=== PATIENT | female | born 1955 | race Hispanic/Latino ===

== ENCOUNTER 2020-04-14 21:56 | Emergency (ER) | payer OTHER ==
[2020-04-14 22:16] LABS: Absolute Lymphocytes (CBC) 7.7 K/uL (0.7-4.9); Basophils % 0.5 % (0-1.3); Hematocrit 42.5 % (36.0-45.0); Lymphocytes % 39.3 % (15.3-44.8); MPV 12.3 fL (7.6-11.3); RBC Red Blood Cell Count 4.83 M/uL (3.86-4.86)
[2020-04-14 22:20] LABS: Protime INR 1.1
[2020-04-14 22:29] LABS: Arterial Blood Carboxyhemoglob 0.3 % (0-1.5); Blood Gas Oxyhemoglobin 98.1 % (94-97); Blood O2 Saturation 99.4 % (92-98.5)
[2020-04-14 22:33] LABS: Albumin 4.1 g/dL (3.4-5.0); Bilirubin Direct 0.2 mg/dL (0-0.2); Bilirubin Total 0.7 mg/dL (0.2-1.0); CKMB Creatine Kinase MB 1.1 ng/mL (0.3-3.6); Magnesium 1.5 mg/dL (1.8-2.4); Potassium 3.6 mmol/L (3.5-5.1); Protein, Total 8.8 g/dL (6.4-8.2); Troponin (Emerg Dept Use Only) 0.03 ng/mL (0.0-0.045)
[2020-04-14 22:48] LABS: Urine Blood NEGATIVE (NEG); Urine Glucose NEGATIVE (NEG); Urine Protein 2+ (NEG); Urine Specific Gravity >1.030 (1.005-1.030)
[2020-04-14] MEDS ORDERED: NA CHLORIDE 0.9% 100 ML IV ONE (23:56)
[2020-04-14] MEDS ORDERED: LEVETIRACETAM 500 MG/5 ML VIAL IV ONE (23:56)
[2020-04-15] MEDS ORDERED: NA CHLORIDE 0.9% 1,000 ML ONE (00:05)
--- NOTE | 2020-04-15 01:46 | ER ---
Nurse's Notes [facility] Name: Elizabeth Hernandez Age: 64 yrs Sex: Female : 1955 Arrival Date: 04/14/2020 Time: 21:58 Bed 2 Private MD: Diagnosis: Epilepsy and recurrent seizures Presentation: 04/14 21:50 Initial Sepsis Screen: Does the patient meet any 2 criteria? HR > 90 bpm. Does the ea patient have a suspected source of infection? No. Patient's initial sepsis screen is negative. 21:50 Chief complaint: EMS states: we were called for a patient who is unresponsive, while rr5 getting to shower she had a seizure, no history of seizure. another seizure witness by EMS lasted for 1 minute. previous stroke noted few weeks ago. Coronavirus screen: unable to obtain information. Ebola Screen: Patient negative for fever greater than or equal to 101.5 degrees Fahrenheit, and additional compatible Ebola Virus Disease symptoms Patient denies exposure to infectious person. Patient denies travel to an Ebola-affected area in the 21 days before illness onset. 21:50 Method Of Arrival: EMS: [facility] rr5 21:50 Risk Assessment: Do you want to hurt yourself or someone else? Unable to obtain. Onset rr5 of symptoms was April 14, 2020. Care prior to arrival: Medication(s) given: versed 10 mg/IV. 21:50 Acuity: IVANIA 1 rr5 Historical: - Allergies: 22:43 No Known Allergies; rr5 - Home Meds: 22:43 Metformin Oral [Active]; lisinopril 20 mg Oral tab 1 tab once daily [Active]; rr5 amlodipine 5 mg tab 1 tab once daily [Active]; glimepiride 1 mg Oral tab 1 tab once daily [Active]; chlorthalidone 25 mg Oral tab 1 tab once daily [Active]; Januvia 100 mg oral tab 1 tab once daily [Active]; atorvastatin 80 mg oral tab 1 tab once daily [Active]; - PMHx: 22:43 Hypertension; Hyperlipidemia; Diabetes - NIDDM; rr5 - Immunization history:: Adult Immunizations unknown. - Social history:: Smoking status: unknown. Screenin:09 Abuse screen: Denies threats or abuse. Nutritional screening: No deficits noted. ea Tuberculosis screening: No symptoms or risk factors identified. Fall Risk IV access (20 points). Assessment: 21:50 General: Appears in no apparent distress. Behavior is unresponsive. rr5 21:50 Pain: Unable to use pain scale. Patient is unresponsive. Neuro: Level of Consciousness rr5 is unresponsive, Oriented to none episodes of seizure and previous stroke stated EMS. Cardiovascular: Capillary refill < 3 seconds Patient's skin is warm and dry. Respiratory: Airway is patent Respiratory effort is even, Respiratory pattern is regular, in brought by EMS on bag valve mask at 15 liters. GI:. : No signs and/or symptoms were reported regarding the genitourinary system. EENT: No signs and/or symptoms were reported regarding the EENT system. Derm: Skin is intact, Skin temperature is warm. Musculoskeletal: Circulation, motion, and sensation intact. Capillary refill < 3 seconds. 22:00 Reassessment: Pt taken to CT. ea 22:10 Reassessment: oxygen shifted to nasal cannula by RT oxygen result 500. rr5 22:35 Reassessment: Patient appears in no apparent distress at this time. woke up, more awake rr5 now, respond to verbal stimuli. 23:12 Reassessment: Patient and/or family updated on plan of care and expected duration. Pain ea level reassessed. Patient is alert, oriented x 3, equal unlabored respirations, skin warm/dry/pink. 04/15 00:26 Reassessment: [phone] jessi daughter. rr5 00:38 Reassessment: Patient and/or family updated on plan of care and expected duration. Pain ea level reassessed. Patient is alert, oriented x 3, equal unlabored respirations, skin warm/dry/pink. 00:59 Reassessment: Patient and/or family updated on plan of care and expected duration. Pain ea level reassessed. Patient is alert, oriented x 3, equal unlabored respirations, skin warm/dry/pink. 02:00 Reassessment: Patient appears in no apparent distress at this time. Patient is alert, rr5 oriented x 3, equal unlabored respirations, skin warm/dry/pink. family member at bedside, vitally stable, no complaints made. 02:30 Reassessment: Patient appears in no apparent distress at this time. Patient is alert, rr5 oriented x 3, equal unlabored respirations, skin warm/dry/pink. discharge instruction given and explained to last dipper without complaints made Patient states feeling better. Vital Signs: 04/14 21:50 BP 175 / 94; Pulse 139; Resp 14; Temp 98.2; Pulse Ox 100% 15% ; rr5 22:25 BP 151 / 87; Pulse 133; Resp 18; Pulse Ox 100% on 3 lpm NC; rr5 22:43 Weight 74.84 kg; Height 5 ft. 2 in. (157.48 cm); rr5 23:12 BP 142 / 76; Pulse 122; Resp 19; Pulse Ox 98% on R/A; ea 04/15 00:00 BP 141 / 85; Pulse 110; Resp 17; Pulse Ox 98% ; rr5 00:53 BP 148 / 73; Pulse 98; Resp 18; Pulse Ox 99% ; rr5 02:00 BP 108 / 58; Pulse 89; Resp 17; Pulse Ox 99% ; rr5 02:30 BP 126 / 79; Pulse 80; Resp 16; Pulse Ox 98% ; rr5 04/14 22:43 Body Mass Index 30.18 (74.84 kg, 157.48 cm) rr5 04/14 21:50 bag valve mask rr5 [place] Score: 22:35 Eye Response: to voice(3). Verbal Response: confused(4). Motor Response: obeys rr5 commands(6). Total: 13. 04/15 00:00 Eye Response: spontaneous(4). Verbal Response: oriented(5). Motor Response: obeys rr5 commands(6). Total: 15. 00:53 Eye Response: spontaneous(4). Verbal Response: oriented(5). Motor Response: obeys rr5 commands(6). Total: 15. 02:30 Eye Response: spontaneous(4). Verbal Response: oriented(5). Motor Response: obeys rr5 commands(6). Total: 15. ED Course: 04/14 21:50 Patient has correct armband on for positive identification. Placed in gown. Bed in low ea position. Call light in reach. color television console monitor on. Pulse ox on. NIBP on. 21:50 Arm band placed on right wrist. Patient placed in an exam room, on a stretcher, on ea telemetry monitor, on pulse oximetry. 21:50 Seizure precautions initiated. rr5 21:50 Maintain EMS IV. Dressing intact. Good blood return noted. Site clean \T\ dry. Gauge \T\ rr 5 site: G20 right AC. O2 via bag valve mask at 15 liter Response to oxygen therapy: symptoms improved. 21:53 Initial lab(s) drawn, by ED staff, sent to lab. rr5 21:55 ABG drawn. by RT staff, on oxygen. rr5 21:58 Patient arrived in ED. ds1 22:00 Adarsh Julio MD is Attending Physician. tw4 22:13 Felipe Mixon, SYEDA is Primary Nurse. rr5 22:17 CT Head C Spine In Process Unspecified. EDOH 22:18 Triage completed. rr5 22:30 Inserted saline lock: 20 gauge in left hand, using aseptic technique. ,using aseptic rr5 technique. by radha Blood collected. 04/15 01:45 Kevin Richter MD is Referral Physician. tw4 02:30 No provider procedures requiring assistance completed. IV discontinued, intact, rr5 bleeding controlled, No redness/swelling at site. Pressure dressing applied. Administered Medications: 04/14 23:55 Drug: Keppra 1000 mg Route: IV; Rate: calculated rate; Site: right antecubital; ea 04/15 00:20 Follow up: Response: No adverse reaction; IV Status: Completed infusion; IV Intake: rr5 100ml 04/14 23:57 Drug: NS 0.9% 1000 ml Route: IV; Rate: 1 bolus; Site: right antecubital; rr5 Intake: 04/15 00:20 IV: 100ml; Total: 100ml. rr5 Outcome: 01:46 Discharge ordered by . tw4 02:30 Discharged to home via wheelchair, with family. rr5 02:30 Condition: stable 02:30 Discharge instructions given to family, Instructed on discharge instructions, follow up and referral plans. medication usage, Demonstrated understanding of instructions, follow-up care, medications, Prescriptions given X 1. 02:34 Patient left the ED. rr5 Signatures: Dispatcher [employer] [facility] Millie Turner ds1 Michelle Zabala, Adarsh Warren RN, ea, MD MD tw4 Felipe Mixon, RN RN rr5 Corrections: (The following items were deleted from the chart) 03:06 03:05 No provider procedures requiring assistance completed. rr5 rr5 03:06 03:05 IV discontinued, intact, bleeding controlled, No redness/swelling at site. rr5 Pressure dressing applied, rr5
--- NOTE | 2020-04-15 01:46 | EDPHYS ---
Physician Documentation [facility] Name: Elizabeth Hernandez Age: 64 yrs Sex: Female : 1955 Arrival Date: 04/14/2020 Time: 21:58 Bed 2 Private MD: ED Physician Adarsh Julio HPI: 04/15 01:42 This 64 yrs old Female presents to ER via EMS with complaints of Unresponsive. tw4 01:42 The patient presents with decreased responsiveness, seizure activity. Onset: The tw4 symptoms/episode began/occurred today. Possible causes: CVA or TIA, drug use, head injury, low blood sugar, seizure. Associated signs and symptoms: The patient has no apparent associated signs or symptoms. Current symptoms: In the emergency department the patient's symptoms are unchanged from the initial presentation. Patient's baseline: Neuro: alert and fully oriented, Motor: no deficits, Ambulation: walks without assistance, Speech: normal. Unable to obtain HPI due to obtunded state. The patient has not experienced similar symptoms in the past. The patient has not recently seen a physician. Historical: - Allergies: 04/14 22:43 No Known Allergies; rr5 - Home Meds: 22:43 Metformin Oral [Active]; lisinopril 20 mg Oral tab 1 tab once daily [Active]; rr5 amlodipine 5 mg tab 1 tab once daily [Active]; glimepiride 1 mg Oral tab 1 tab once daily [Active]; chlorthalidone 25 mg Oral tab 1 tab once daily [Active]; Januvia 100 mg oral tab 1 tab once daily [Active]; atorvastatin 80 mg oral tab 1 tab once daily [Active]; - PMHx: 22:43 Hypertension; Hyperlipidemia; Diabetes - NIDDM; rr5 - Immunization history:: Adult Immunizations unknown. - Social history:: Smoking status: unknown. ROS: 04/15 01:42 Constitutional: Negative for fever, chills, and weight loss, Eyes: Negative for injury, tw4 pain, redness, and discharge, Cardiovascular: Negative for chest pain, palpitations, and edema, Respiratory: Negative for shortness of breath, cough, wheezing, and pleuritic chest pain, Abdomen/GI: Negative for abdominal pain, nausea, vomiting, diarrhea, and constipation, Back: Negative for injury and pain, MS/Extremity: Negative for injury and deformity, Skin: Negative for injury, rash, and discoloration. Neuro: Positive for seizure activity, Negative for altered mental status, dizziness, gait disturbance, headache, hearing loss, tinnitus, tremor, visual changes, weakness. Exam: 01:42 Neuro: Orientation: unable to test, the patient is post-ictal, Mentation: unable to tw4 test, the patient is post-ictal, Motor: moves all fours. 06:11 Constitutional: This is a well developed, well nourished patient who is awake, alert, tw4 and in no acute distress. Head/Face: Normocephalic, atraumatic. Neck: Trachea midline, no thyromegaly or masses palpated, and no cervical lymphadenopathy. Supple, full range of motion without nuchal rigidity, or vertebral point tenderness. No Meningismus. Chest/axilla: Normal chest wall appearance and motion. Nontender with no deformity. No lesions are appreciated. Cardiovascular: Regular rate and rhythm with a normal S1 and S2. No gallops, murmurs, or rubs. Normal PMI, no JVD. No pulse deficits. Respiratory: Lungs have equal breath sounds bilaterally, clear to auscultation and percussion. No rales, rhonchi or wheezes noted. No increased work of breathing, no retractions or nasal flaring. Abdomen/GI: Soft, non-tender, with normal bowel sounds. No distension or tympany. No guarding or rebound. No evidence of tenderness throughout. Back: No spinal tenderness. No costovertebral tenderness. Full range of motion. Skin: Warm, dry with normal turgor. Normal color with no rashes, no lesions, and no evidence of cellulitis. Vital Signs: 04/14 21:50 BP 175 / 94; Pulse 139; Resp 14; Temp 98.2; Pulse Ox 100% 15% ; rr5 22:25 BP 151 / 87; Pulse 133; Resp 18; Pulse Ox 100% on 3 lpm NC; rr5 22:43 Weight 74.84 kg; Height 5 ft. 2 in. (157.48 cm); rr5 23:12 BP 142 / 76; Pulse 122; Resp 19; Pulse Ox 98% on R/A; ea 04/15 00:00 BP 141 / 85; Pulse 110; Resp 17; Pulse Ox 98% ; rr5 00:53 BP 148 / 73; Pulse 98; Resp 18; Pulse Ox 99% ; rr5 02:00 BP 108 / 58; Pulse 89; Resp 17; Pulse Ox 99% ; rr5 02:30 BP 126 / 79; Pulse 80; Resp 16; Pulse Ox 98% ; rr5 13 22:43 Body Mass Index 30.18 (74.84 kg, 157.48 cm) rr5 04/14 21:50 bag valve mask rr5 [place] Coma Score: 22:35 Eye Response: to voice(3). Verbal Response: confused(4). Motor Response: obeys rr5 commands(6). Total: 13. 0614 00:00 Eye Response: spontaneous(4). Verbal Response: oriented(5). Motor Response: obeys rr5 commands(6). Total: 15. 00:53 Eye Response: spontaneous(4). Verbal Response: oriented(5). Motor Response: obeys rr5 commands(6). Total: 15. 02:30 Eye Response: spontaneous(4). Verbal Response: oriented(5). Motor Response: obeys rr5 commands(6). Total: 15. MDM: 04/14 22:00 Patient medically screened. tw4 04/15 01:42 Differential Diagnosis: CVA, intracranial bleed, volume depletion. Data reviewed: vital tw4 signs, nurses notes. Data interpreted: Pulse oximetry: Interpretation: normal. Counseling: I had a detailed discussion with the patient and/or guardian regarding: the historical points, exam findings, and any diagnostic results supporting the discharge/admit diagnosis. Special discussion: I discussed with the patient/guardian in detail that at this point there is no indication for admission to the hospital. It is understood, however, that if the symptoms persist or worsen the patient needs to return immediately for re-evaluation. 04/14 22:01 Order name: Basic Metabolic Panel; Complete Time: 22:52 tw4 04/14 22:52 Interpretation: Normal except: CO2 16; BUN 26; GLUC 212; CRE 1.63; GFR 32. tw4 04/14 22:01 Order name: CBC with Diff; Complete Time: 22:52 tw4 04/14 22:52 Interpretation: Normal except: MPV 12.3; WBC 19.5. tw4 04/14 22:01 Order name: Ckmb; Complete Time: 22:52 tw4 04/14 22:01 Order name: CPK; Complete Time: 22:52 tw4 04/14 22:01 Order name: Hepatic Function; Complete Time: 22:52 tw4 04/14 22:53 Interpretation: Normal except: TP 8.8; GLOB 4.7; A/G 0.9. 04/14 22:01 Order name: Lipase; Complete Time: 22:52 tw4 04/14 22:01 Order name: CT Head C Spine 04/14 22:01 Order name: Magnesium; Complete Time: 22:52 tw04/14 22:53 Interpretation: Normal except: MG 1.5. 04/14 22:01 Order name: Protime (+inr); Complete Time: 22:52 04/14 22:53 Interpretation: Normal except: PT 13.0. 04/14 22:01 Order name: Ptt, Activated; Complete Time: 22:52 04/14 22:53 Interpretation: Normal except: PTT 23.6. 04/14 22:01 Order name: Troponin (emerg Dept Use Only); Complete Time: 22:52 04/14 22:29 Order name: ABG Arterial Blood Gas; Complete Time: 22:52 EDMS 04/14 22:53 Interpretation: Normal except: ABGPO2 504.0; ABGPCO2 32.0; ABGPH 7.26; ABGHCO3 13.9; tw4 ABGSO2 99.4; EIHN9SG 98.1. 04/14 22:40 Order name: Urine Dipstick--Ancillary (enter results); Complete Time: 22:52 ds4 04/14 22:47 Order name: Glucose, Ancillary Testing; Complete Time: 22:52 EDMS 04/14 22:01 Order name: EKG; Complete Time: 22:02 04/14 22:01 Order name: Cardiac monitoring; Complete Time: 22:02 04/14 22:01 Order name: EKG - Nurse/Tech; Complete Time: 22:02 4 04/14 22:01 Order name: IV Saline Lock; Complete Time: 22:02 04/14 22:01 Order name: Labs collected and sent; Complete Time: 22:08 04/14 22:01 Order name: NPO; Complete Time: 22:02 tw4 04/14 22:01 Order name: O2 Per Protocol; Complete Time: 22:02 tw4 04/14 22:01 Order name: O2 Sat Monitoring; Complete Time: 22:02 tw4 04/14 22:01 Order name: Urine Dipstick-Ancillary (obtain specimen); Complete Time: 22:31 tw4 EC:11 Rhythm is regular, Sinus tachycardia with Right bundle branch block. QRS [place] is tw4 Normal. VA interval is normal. QRS interval is normal. QT interval is normal. No Q waves. T waves are Normal. No ST changes noted. Clinical impression: NSR w/ Non-specific ST/T Changes. Interpreted by me. Reviewed by me. Administered Medications: 04/14 23:55 Drug: Keppra 1000 mg Route: IV; Rate: calculated rate; Site: right antecubital; ea 04/15 00:20 Follow up: Response: No adverse reaction; IV Status: Completed infusion; IV Intake: rr5 100ml 04/14 23:57 Drug: NS 0.9% 1000 ml Route: IV; Rate: 1 bolus; Site: right antecubital; rr5 Disposition: 04/15/20 01:46 Discharged to Home. Impression: Epilepsy and recurrent seizures. - Condition is Stable. - Discharge Instructions: Seizure, Adult. - Prescriptions for Keppra 750 mg Oral Tablet - take 1 tablet by ORAL route every 12 hours; 20 tablet. - Medication Reconciliation Form, Thank You Letter, Antibiotic Education, Prescription Opioid Use form. - Follow up: Private Physician; When: Upon discharge from the Emergency Department; Reason: Recheck today's complaints, Continuance of care, Re-evaluation by your physician. Follow up: Kevin Richter MD; When: Upon discharge from the Emergency Department; Reason: Recheck today's complaints, Continuance of care, Re-evaluation by your physician. - Problem is new. - Symptoms have improved. Signatures: Dispatcher [employer] EDMS Michelle Zabala, RN Adarsh Warren ea, MD MD tw4 Felipe Mixon RN RN rr5 Corrections: (The following items were deleted from the chart) 04/15 01:44 01:42 Constitutional: This is a well developed, well nourished patient who is awake, tw4 alert, and in no acute distress. Head/Face: Normocephalic, atraumatic. Chest/axilla: Normal chest wall appearance and motion. Nontender with no deformity. No lesions are appreciated. Cardiovascular: Regular rate and rhythm with a normal S1 and S2. No gallops, murmurs, or rubs. Normal PMI, no JVD. No pulse deficits. Respiratory: Lungs have equal breath sounds bilaterally, clear to auscultation and percussion. No rales, rhonchi or wheezes noted. No increased work of breathing, no retractions or nasal flaring. Abdomen/GI: Soft, non-tender, with normal bowel sounds. No distension or tympany. No guarding or rebound. No evidence of tenderness throughout. Back: No spinal tenderness. No costovertebral tenderness. Full range of motion. MS/ Extremity: Pulses equal, no cyanosis. Neurovascular intact. Full, normal range of motion. Neuro: Awake and alert, GCS 15, oriented to person, place, time, and situation. Cranial nerves II-XII grossly intact. Motor strength 5/5 in all extremities. Sensory grossly intact. Cerebellar exam normal. Normal gait. tw4 02:34 01:46 04/15/2020 01:46 Discharged to Home. Impression: Epilepsy and recurrent seizures. rr5 Condition is Stable. Forms are Medication Reconciliation Form, Thank You Letter, Antibiotic Education, Prescription Opioid Use. Follow up: Private Physician; When: Upon discharge from the Emergency Department; Reason: Recheck today's complaints, Continuance of care, Re-evaluation by your physician. Follow up: Kevin Richter; When: Upon discharge from the Emergency Department; Reason: Recheck today's complaints, Continuance of care, Re-evaluation by your physician. Problem is new. Symptoms have improved. tw4
[2020-04-15 02:43] VITALS: O2SAT 99
[2020-04-15 02:44] VITALS: BP 108/58
--- NOTE | 2020-04-16 10:17 | RAD REPORT ---
EXAM DESCRIPTION: CT - [id number] - 04/15/2020 5:41 am CLINICAL HISTORY: The patient is 64 years old and is Female; seizure changed mental status TECHNIQUE: Axial computed tomography images of the head/brain and cervical spine without intravenous contrast. Sagittal and coronal reformatted images were created and reviewed. This CT exam was pe rformed using one or more of the following dose reduction techniques: automated exposure control, a djustment of the mA and/or kV according to patient size, and/or use of iterative reconstruction techn ique. COMPARISON: No relevant prior studies available. FINDINGS: Brain: Periventricular and deep white matter hypodensities, most commonly due to nonspec [facility] white matter chronic microvascular ischemia. Mild cerebral atrophy. No hemorrhage. Ventricles: Unremarkable. No ventriculomegaly. Skull: No acute fracture. Sinuses: Opacification right frontal sinus Mastoid air cells: Unremarkable as visualized. No mastoid effusion. Vertebrae: Straightening of cervical spine may be positional or due to muscle spasm. No acute fracture. Normal alignment. Discs/spinal canal/neural foramina: Multilevel spine degenerative changes with disc height loss and osteophyte formation from C2 through T1. Soft tissues: Unremarkable. Vasculature: Vascular calcifications. IMPRESSION: 1. No acute intracranial findings. Mild cerebral atrophy and nonspecific chronic micro vascular ischemic changes. 2. No acute spine abnormality. No fracture or subluxation. Mild to moderate spine degenerative [place] ges. 3. Straightening of cervical spine may be positional or due to muscle spasm. Electronically signed by: Holland Manzanares MD 04/14/2020 10:33 PM CDT Due to temporary technical issues with the PACS/Fluency reporting system, reports are being signed by the in house radiologist without review as a courtesy to ensure prompt reporting. The interpreting r adiologist is fully responsible for the content of the report.
--- NOTE | 2020-04-18 06:30 | EKG ---
Test Date: 2020-04-14 Test Time: 21:48:25 Statement Clerks Supervisor: Serenity MEASUREMENT RESULTS: Intervals: Rate: 132 OK: 78 QRSD: 124 QT: 348 QTc: 515 [place]: P: 22 OK: 78 QRS: 53 T: 70 INTERPRETIVE STATEMENTS: Sinus tachycardia with short OK Right bundle branch block Abnormal ECG No previous ECG available for comparison Electronically Signed On 04-18-20 06:24:56 CDT by Hayden Ruelas
== END 2020-04-15 02:34 | disposition home or self-care (01) ==
LOC: EDBD 21:56 → ER 21:56
DX: G40.802 Other epilepsy, not intractable, without status epilepticus (principal); I10 Essential (primary) hypertension; E78.5 Hyperlipidemia, unspecified; E11.9 Type 2 diabetes mellitus without complications
CPT/HCPCS: 96365; 93005; 85025; 80048; 36415; 83735; 82550; 85610; 82947; 80076; 85730; 81003; 84484; 82553; 83690; 70450; 72125; 82805; 99291; 99292; J1953